=== PATIENT | female | born 1995 | race African-American/Black ===

== ENCOUNTER 2019-12-29 18:05 | Emergency (ER) | payer OTHER, BC ==
[~2019-12-29] VITALS: Ht 170.2 cm; Wt 68.0 kg
--- NOTE | 2019-12-29 18:27 | NUR ---
WANT X-RAYS FOR HER FACE SINCE THEY WERE NOT DONE 3 DAYS AGO AT [facility] WHERE SHE WAS SEEN 3 DAYS AGO. REPORTS LEFT EYE PAIN AND SWELLING, ECCHYMOSIS NOTED. ALSO C/O HEADACHE. DENIES VISION CHANGES, DIZZINESS, WEAKNESS, N/V. NO ACUTE DISTRESS NOTED. MADE COMFORTABLE AND READY FOR EVAL.
--- NOTE | 2019-12-29 19:54 | NUR ---
Patient discharged to home in stable condition. Written and verbal after care instructions given. Patient verbalizes understanding of instruction.
[2019-12-29 22:52] VITALS: BP 117/82
== END 2019-12-29 19:54 | disposition home or self-care (01) ==
LOC: ER 18:22
DX: S06.0X0A Concussion without loss of consciousness, initial encounter (principal); S00.33XA Contusion of nose, initial encounter; S00.12XA Contusion of left eyelid and periocular area, initial encounter; S00.11XA Contusion of right eyelid and periocular area, initial encounter; R51 Headache; V49.49XA Driver injured in collision with other motor vehicles in traffic accident, initial encounter; Y93.89 Activity, other specified; Y92.488 Other paved roadways as the place of occurrence of the external cause; Y99.8 Other external cause status
CPT/HCPCS: 70450-TC; 70486-TC

== ENCOUNTER 2021-05-29 14:35 | Emergency (ER) | payer BC, OTHER ==
[~2021-05-29] VITALS: Ht 170.2 cm; Wt 73.5 kg
[2021-05-29 14:41] VITALS: BP 100/73
[2021-05-29] MEDS ORDERED: OMEP40CA21 PO (14:51)
[2021-05-29] MEDS ORDERED: AZIT250T PO (14:51)
--- NOTE | 2021-05-29 14:57 | NUR ---
Patient discharged to home in stable condition. Written and verbal after care instructions given. Patient verbalizes understanding of instruction. Pt ambulatory with a steady gait
== END 2021-05-29 14:59 | disposition home or self-care (01) ==
LOC: EDUNIT# 14:35 → ER 14:38
DX: J20.9 Acute bronchitis, unspecified (principal)

== ENCOUNTER 2021-09-28 17:27 | Emergency (ER) | payer BC ==
[~2021-09-28] VITALS: Ht 170.2 cm; Wt 74.8 kg
[~2021-09-28 17:27] MED LIST: AZIT250T PO; OMEP40CA21 PO
[2021-09-28 17:43] VITALS: BP 128/81
--- NOTE | 2021-09-28 17:57 | NUR ---
THROAT DISCOMFORT, PAINFUL TO SWALLOW X LAST NIGHT. NOTICE GLASS PARTICLE IN HER FOOD WHILE DINING OUT LAST NIGHT. IN ROOM AIR AND DENIES SOB. RESPIRATION REGULAR AND UNLABORED. WILL CONTINUE TO MONITOR THE PATIENT.
--- NOTE | 2021-09-28 18:27 | NUR ---
Patient eloped from facility. ER MD notified.
== END 2021-09-28 18:28 | disposition home or self-care (01) ==
LOC: ER 17:43
DX: Z53.21 Procedure and treatment not carried out due to patient leaving prior to being seen by health care provider (principal); R07.0 Pain in throat

== ENCOUNTER 2022-01-18 14:30 | Emergency (ER) | payer BC ==
[~2022-01-18] VITALS: Ht 170.2 cm; Wt 72.6 kg
[2022-01-18 14:37] VITALS: BP 133/80
--- NOTE | 2022-01-18 14:45 | NUR ---
SEEN AND EXAMINED BY .
[2022-01-18] MEDS ORDERED: IBUPROFEN 400 MG TABLET ONE (14:50)
--- NOTE | 2022-01-18 14:53 | NUR ---
BROUGHT TO RADIOLOGY DEPT FOR XRAY
[2022-01-18] MEDS ORDERED: LIDOCAINE 1% INJ 50 ML MDV IJ ONE ×2 (14:57→15:00)
[2022-01-18] MEDS ORDERED: IBUPROFEN 400 MG TABLET PO ONE (15:00)
[2022-01-18] MEDS ORDERED: LIDOCAINE /MPF 1% VIAL 5 ML VIAL ONE ×2 (15:24→15:26)
[2022-01-18] MEDS ORDERED: IBUP-1957 PO (16:20)
[2022-01-18] MEDS ORDERED: HYDR-4209 PO (16:20)
[2022-01-18] MEDS ORDERED: CLIN300C12 PO (16:20)
--- NOTE | 2022-01-18 16:26 | NUR ---
Patient discharged to home in stable condition. Written and verbal after care instructions given. Patient verbalizes understanding of instruction.
== END 2022-01-18 16:27 | disposition home or self-care (01) ==
LOC: ER 14:33
DX: S62.635A Displaced fracture of distal phalanx of left ring finger, initial encounter for closed fracture (principal); F17.200 Nicotine dependence, unspecified, uncomplicated; Z79.891 Long term (current) use of opiate analgesic; Z79.1 Long term (current) use of non-steroidal anti-inflammatories (NSAID); Z79.899 Other long term (current) drug therapy; W23.0XXA Caught, crushed, jammed, or pinched between moving objects, initial encounter; Y93.89 Activity, other specified; Y92.89 Other specified places as the place of occurrence of the external cause; Y99.8 Other external cause status
CPT/HCPCS: 11730; 73130; 99284; A6403; J3490 ×3

== ENCOUNTER 2022-01-21 17:09 | Emergency (ER) | payer BC ==
[~2022-01-21] VITALS: Ht 170.2 cm; Wt 72.6 kg
[~2022-01-21 17:09] MED LIST changes: +CLIN300C12 PO; +HYDR-4209 PO; +IBUP-1957 PO
--- NOTE | 2022-01-21 17:33 | NUR ---
TO ER BED 4. RIGHT 4TH FINGERNAIL AVULSION, SAME INJURY TO LEFT 4TH FINGERNAIL 3 DAYS AGO.
--- NOTE | 2022-01-21 17:58 | NUR ---
X RAY AT BEDSIDE
[2022-01-21] MEDS ORDERED: LIDOCAINE /MPF 1% VIAL 5 ML VIAL ONE (18:20)
[2022-01-21] MEDS ORDERED: IBUPROFEN 600 MG TABLET ONE (18:20)
[2022-01-21] MEDS ORDERED: IBUPROFEN 600 MG TABLET PO ONE (18:30)
[2022-01-21] MEDS ORDERED: LIDOCAINE HCL/PF 1% 30 ML VIAL TP ONE (18:30)
[2022-01-21] MEDS ORDERED: LIDOCAINE 1% INJ 50 ML MDV IJ ONE (18:45)
[2022-01-21 19:19] VITALS: BP 141/84
== END 2022-01-21 19:20 | disposition home or self-care (01) ==
LOC: ER 17:13
DX: S61.304A Unspecified open wound of right ring finger with damage to nail, initial encounter (principal); F17.200 Nicotine dependence, unspecified, uncomplicated; Z79.891 Long term (current) use of opiate analgesic; Z79.1 Long term (current) use of non-steroidal anti-inflammatories (NSAID); Z79.899 Other long term (current) drug therapy; Y04.0XXA Assault by unarmed brawl or fight, initial encounter; Y93.89 Activity, other specified; Y92.89 Other specified places as the place of occurrence of the external cause; Y99.8 Other external cause status
CPT/HCPCS: 11730; 73130; 99284; J3490 ×3

== ENCOUNTER 2022-06-16 10:19 | Emergency (ER) | payer BC, MEDICAID ==
[~2022-06-16] VITALS: Ht 170.2 cm; Wt 74.8 kg
--- NOTE | 2022-06-16 10:30 | NUR ---
BIBS W/ C/O VAGINAL BLEEDING AND PAIN RATED 8/10 PS; PT STATES THAT SHE IS 4 WEEKS . TO ER BED 7.
--- NOTE | 2022-06-16 10:33 | NUR ---
URINE SAMPLE COLLECTED AND SENT TO LAB
--- NOTE | 2022-06-16 10:47 | NUR ---
PHLEB TECH AT BEDSIDE FOR BLOOD DRAW
[2022-06-16 11:08] LABS: BASOPHILS % (AUTO) 0.5 % (0.0-2.0); EOSINOPHILS % (AUTO) 6.2 % (0.0-6.0); HEMATOCRIT 40 % (33-45); HEMOGLOBIN 13.9 g/dL (11.5-14.8); LYMPHOCYTES # (AUTO) 1.9 K/uL (0.8-4.8); LYMPHOCYTES % (AUTO) 26.6 % (20.0-44.0); MEAN CORPUSCULAR HGB CONC 34 g/dl (31.0-36.0); MEAN CORPUSCULAR VOLUME 90 fL (82-100); MONOCYTES # (AUTO) 0.4 K/uL (0.1-1.30); MONOCYTES % (AUTO) 5.4 % (2.0-12.0); NEUTROPHILS # (AUTO) 4.5 K/uL (1.8-8.9); NEUTROPHILS % (AUTO) 61.3 % (43.0-81.0); PLATELET COUNT (AUTO) 301 K/uL (150-450); RED BLOOD CELL COUNT(AUTO) 4.47 MIL/uL (4.0-5.2); WHITE BLOOD COUNT (AUTO) 7.3 K/uL (4.3-11.0)
[2022-06-16 11:12] LABS: BILIRUBIN,URINE NEGATIVE (NEGATIVE); COLOR,URINE YELLOW (YELLOW); LEUKOCYTE ESTERASE ,URINE NEGATIVE (NEGATIVE); NITRITE, URINE NEGATIVE (NEGATIVE); PROTEIN,URINE NEGATIVE (NEGATIVE); UGLUCOSE NEGATIVE (NEGATIVE); UROBILINOGEN,URINE 0.2 EU/dL (0.2)
--- NOTE | 2022-06-16 11:12 | NUR ---
U/S TECH AT BED SIDE
[2022-06-16 11:30] LABS: ALBUMIN 3.9 g/dL (3.4-5.0); BILIRUBIN,DIRECT 0.2 mg/dL (0.0-0.2); BILIRUBIN,TOTAL 0.7 mg/dL (0.2-1.0); CALCIUM, SERUM 8.7 mg/dL (8.5-10.1); CREATININE 0.8 mg/dL (0.6-1.3); POTASSIUM 3.5 mmol/L (3.5-5.1); TOTAL PROTEIN, SERUM 7.8 g/dL (6.4-8.2)
[2022-06-16 12:24] LABS: BACTERIA,URINE Few /HPF (None Seen); MUCUS,URINE Few /LPF (None Seen); WBC,URINE 0-2 /HPF (0-3)
--- NOTE | 2022-06-16 13:01 | NUR ---
Patient discharged to home in stable condition. Written and verbal after care instructions given. Patient verbalizes understanding of instruction.
[2022-06-16 13:02] VITALS: BP 122/71
== END 2022-06-16 13:03 | disposition home or self-care (01) ==
LOC: ER 10:25
DX: O46.91 Antepartum hemorrhage, unspecified, first trimester (principal); Z3A.01 Less than 8 weeks gestation of pregnancy
CPT/HCPCS: 36415; 76856-TC; 80048-TC; 80076-TC; 81001; 84702-TC; 85025-TC; 85730-TC; 86592; 86593; 87491; 87591; 87806

== ENCOUNTER 2022-06-19 14:52 | Emergency (ER) | payer MEDICAID ==
--- NOTE | 2022-06-19 15:12 | NUR ---
CALLED FOR TRIAGE, NO REPSONSE
--- NOTE | 2022-06-19 15:20 | NUR ---
CALLED FOR TRIAGE, NO RESPONSE
--- NOTE | 2022-06-19 15:30 | NUR ---
CALLED FOR TRIAGE, NO RESPONSE
== END 2022-06-19 15:51 | disposition left against medical advice (07) ==
LOC: ER 14:57
DX: Z53.21 Procedure and treatment not carried out due to patient leaving prior to being seen by health care provider (principal)

== ENCOUNTER 2022-06-21 01:00 | Emergency (ER) | payer MEDICAID ==
[~2022-06-21] VITALS: Ht 170.2 cm; Wt 74.8 kg
--- NOTE | 2022-06-21 01:43 | NUR ---
[facility] C/O RIGHT SIDE PELVIC PAIN, (2) VAGINAL BOIL, FOUND OUT SHE IS 2 WEEKS AGO, EST. 5 WEEKS. PATIENT IS A/O X 4, RR EVEN AND UNLABORED NO SOB NOTED, PT AFEBRILE. TAKEN TO ER 7. VSS.
--- NOTE | 2022-06-21 01:47 | NUR ---
DR. YANNICK PARIKH AT PT'S BEDSIDE
[2022-06-21] MEDS ORDERED: CEPH500T PO (03:20)
[2022-06-21 03:24] VITALS: BP 129/70
--- NOTE | 2022-06-21 03:24 | NUR ---
Patient discharged to home in stable condition. Written and verbal after care instructions given. Patient verbalizes understanding of instruction.
[2022-06-21] MEDS ORDERED: IBUPROFEN 600 MG TABLET ONE (03:31)
[2022-06-21] MEDS ORDERED: IBUPROFEN 600 MG TABLET PO ONE (04:00)
== END 2022-06-21 03:43 | disposition home or self-care (01) ==
LOC: ER 01:00
DX: O03.9 Complete or unspecified spontaneous abortion without complication (principal); L73.9 Follicular disorder, unspecified; F17.200 Nicotine dependence, unspecified, uncomplicated; Z79.899 Other long term (current) drug therapy
CPT/HCPCS: 36415; 84702-TC

== ENCOUNTER 2022-06-26 13:46 | Emergency (ER) | payer MEDICAID ==
[~2022-06-26] VITALS: Ht 170.2 cm; Wt 78.5 kg
[~2022-06-26 13:46] MED LIST changes: +CEPH500T PO
--- NOTE | 2022-06-26 14:00 | NUR ---
RECEIVED PT 27 YRS FEMALE 5 WEEK PREGNENT LMP 04/2022 G3 PAR 0 2 FROM HOME C/O ABDOMINALE PAIN AND ABDOMINAL PAIN CRMPING X 3 DAYS
--- NOTE | 2022-06-26 14:20 | NUR ---
SEEN BY PROVIDER
--- NOTE | 2022-06-26 14:25 | NUR ---
UA SENT LAB
[2022-06-26 15:33] LABS: BILIRUBIN,URINE NEGATIVE (NEGATIVE); COLOR,URINE YELLOW (YELLOW); LEUKOCYTE ESTERASE ,URINE NEGATIVE (NEGATIVE); NITRITE, URINE NEGATIVE (NEGATIVE); PROTEIN,URINE TRACE mg/dl (NEGATIVE); UGLUCOSE NEGATIVE (NEGATIVE); UROBILINOGEN,URINE 0.2 EU/dL (0.2)
[2022-06-26 15:46] LABS: BASOPHILS % (AUTO) 0.6 % (0.0-2.0); EOSINOPHILS % (AUTO) 3.2 % (0.0-6.0); HEMATOCRIT 40 % (33-45); HEMOGLOBIN 13.2 g/dL (11.5-14.8); LYMPHOCYTES # (AUTO) 2.8 K/uL (0.8-4.8); LYMPHOCYTES % (AUTO) 33.2 % (20.0-44.0); MEAN CORPUSCULAR HGB CONC 33 g/dl (31.0-36.0); MEAN CORPUSCULAR VOLUME 92 fL (82-100); MONOCYTES # (AUTO) 0.6 K/uL (0.1-1.30); MONOCYTES % (AUTO) 7.5 % (2.0-12.0); NEUTROPHILS # (AUTO) 4.6 K/uL (1.8-8.9); NEUTROPHILS % (AUTO) 55.5 % (43.0-81.0); PLATELET COUNT (AUTO) 298 K/uL (150-450); RED BLOOD CELL COUNT(AUTO) 4.31 MIL/uL (4.0-5.2); WHITE BLOOD COUNT (AUTO) 8.3 K/uL (4.3-11.0)
[2022-06-26 15:57] LABS: CALCIUM, SERUM 8.7 mg/dL (8.5-10.1); CREATININE 0.6 mg/dL (0.6-1.3)
[2022-06-26 16:40] LABS: RBC,URINE 81-100 /HPF (0-2); WBC,URINE 0-2 /HPF (0-3)
[2022-06-26 16:41] LABS: BACTERIA,URINE RARE /HPF (None Seen)
[2022-06-26] MEDS ORDERED: IBUPROFEN 400 MG TABLET PO ONE (18:30)
[2022-06-26] MEDS ORDERED: IBUP-1957 PO (18:31)
[2022-06-26] MEDS ORDERED: IBUPROFEN 400 MG TABLET ONE (18:38)
[2022-06-26 18:43] VITALS: BP 110/71
--- NOTE | 2022-06-26 18:45 | NUR ---
Patient discharged to home in stable condition. Written and verbal after care instructions given. Patient verbalizes understanding of instruction.
== END 2022-06-26 18:45 | disposition home or self-care (01) ==
LOC: ER 13:48
DX: O03.9 Complete or unspecified spontaneous abortion without complication (principal); F17.200 Nicotine dependence, unspecified, uncomplicated; Z79.899 Other long term (current) drug therapy; Z3A.01 Less than 8 weeks gestation of pregnancy
CPT/HCPCS: 36415; 76805-TC; 80048-TC; 81001; 84702-TC; 85025-TC; 87210-TC

== ENCOUNTER 2022-07-04 19:55 | Emergency (ER) | payer MEDICAID ==
[~2022-07-04] VITALS: Ht 170.2 cm; Wt 77.1 kg
[2022-07-04 20:42] VITALS: BP 137/73
--- NOTE | 2022-07-04 22:40 | NUR ---
Patient discharged to home in stable condition. Written and verbal after care instructions given. Patient verbalizes understanding of instruction. Pt ambulatory with a steady gait
== END 2022-07-04 22:42 | disposition home or self-care (01) ==
LOC: ER 20:00
DX: O03.9 Complete or unspecified spontaneous abortion without complication (principal); F17.200 Nicotine dependence, unspecified, uncomplicated; Z79.899 Other long term (current) drug therapy
CPT/HCPCS: 36415; 84702-TC

== ENCOUNTER 2022-07-20 09:53 | Emergency (ER) | payer MEDICAID ==
[~2022-07-20] VITALS: Ht 167.6 cm; Wt 74.8 kg
[2022-07-20 10:14] VITALS: BP 121/86
[2022-07-20] MEDS ORDERED: ACETAMINOPHEN 325 MG TABLET PO ONE (11:00)
[2022-07-20] MEDS ORDERED: ACETAMINOPHEN 325 MG TABLET ONE (11:04)
--- NOTE | 2022-07-20 12:36 | NUR ---
Patient discharged to home in stable condition. Written and verbal after care instructions given. Patient verbalizes understanding of instruction.
== END 2022-07-20 12:37 | disposition home or self-care (01) ==
LOC: ER 09:58
DX: M79.641 Pain in right hand (principal); F17.200 Nicotine dependence, unspecified, uncomplicated; Z79.899 Other long term (current) drug therapy
CPT/HCPCS: 73130-TC